=== PATIENT | male | born 1995 | race African-American/Black ===

== ENCOUNTER 2020-02-21 07:57 | Emergency (ER) | payer BC ==
[~2020-02-21] VITALS: Ht 165.1 cm; Wt 89.0 kg
[2020-02-21 08:04] VITALS: BP 135/71
--- NOTE | 2020-02-21 08:24 | PHYS DOC ---
Past History Past Medical History: No Pertinent History Past Surgical History: No Surgical History Alcohol Use: Rarely General Adult EDM: Chief Complaint: KNEE INJURY HPI: HPI: 24-year-old male with no significant past medical history presents to the ED with complaints of left medial knee pain that started when patient was kicking a pillow, knee in extension position. Patient states approximately 6 months ago he was seen at [facility] and had an x-ray concerning for ACL tear. Denies any blunt injury to the knee. No pain at the hip or left ankle. Patient states it hurts to bear weight. No recent fluoroquinolone use. Takes no routine medications. No other joint involvement. ROS: Denies associated fever, chills, cough, sore throat, dyspnea, chest pain or pressure, headache, joint swelling, rash, unilateral leg swelling, n/v/d/c, dysuria, hematuria, urethral discharge or hemoptysis. Physical Exam: PE: Constitutional: Well developed, well nourished, no acute distress, non-toxic appearance. [] HENT: Normocephalic, atraumatic, bilateral external ears normal, oropharynx moist, no oral exudates, nose normal. [] Eyes: PERRLA, EOMI, conjunctiva normal, no discharge. [] Neck: Normal range of motion, no tenderness, supple, no stridor. [] Cardiovascular:Heart rate regular rhythm, no murmur [] Lungs & Thorax: Bilateral breath sounds clear to auscultation [] Abdomen: Bowel sounds normal, soft, no tenderness, no masses, no pulsatile masses. [] Skin: Warm, dry, no erythema, no rash. [] Back: No tenderness, no CVA tenderness. [] Extremities: medial knee ttp, no joint swelling or increased warmth, no unilateral leg swelling, unremarkable lachmans.reverse lachmans, no cyanosis, no clubbing, no edema. [] normal flexion, painful extension Neurologic: Alert and oriented X 3, normal motor function, normal sensory function, no focal deficits noted. [] Psychologic: Affect normal, judgement normal, mood normal. [] Current Patient Data: Vital Signs: Vital Signs Date Time Temp Pulse Resp B/P (MAP) Pulse Ox O2 Delivery O2 Flow Rate FiO2 20 08:04 98.1 64 16 135/71 (92) 98 Room Air EKG: EKG: [] Radiology/Procedures: Radiology/Procedures: []IMAGING REPORT Signed PATIENT: ASHKAN TURK ACCOUNT: [id number] : 1995 LOCATION: ER AGE: 24 SEX: M EXAM STATUS: REG ER ORD. PHYSICIAN: YOUNG BANGURA DO REASON: left knee pain PROCEDURE: KNEE LEFT 3V KNEE LEFT 3V History: Left knee pain. Technique: 3 views left knee. Comparison: None. Findings: Normal alignment. No fracture. Soft tissues unremarkable. Small knee joint effusion. Impression: 1. No acute osseous abnormality. Electronically signed by: Cruz Obrien DO (02/21/2020 8:32 AM) [id number] DICTATED AND SIGNED BY: CRUZ OBRIEN DO DATE: 02/21/20831 Course & Med Decision Making: Course & Med Decision Making Impression: Concern for left medial knee sprain w/small effusion, differential is broad, likely ligamentous versus meniscal injury, life/limb-threatening conditions considered including septic joint/infection, osteomyelitis, compartment syndrome, neurovascular injury considered, low suspicion. Recommended conservative management, rice, and orthopedic surgery follow-up. Will provide knee brace, crutches, apap/nsaids otc prn. I spoken with the patient and her caregivers. I explained the patient's condition, diagnoses and treatment plan based on the information available to me at this time. I have answered the patient and her caregiver's questions and addressed any concerns. The patient and her caregivers have a good understanding of patient's diagnosis, condition and treatment plan as can be expected at this point. Vital signs have been stable. Patient's condition is stable and appropriate for discharge from the emergency department. Patient will pursue further outpatient evaluation with primary care physician or other designated or consulting physician as outlined in the discharge ins tructions. The patient and/or caregivers are agreeable to this plan of care and follow-up instructions have been explained in detail. The patient and/or caregivers have received these instructions in written form and have expressed an understanding of the discharge instructions. The patient and/or caregivers are aware that any significant change of condition or worsening of symptoms should prompt immediate return to this or the closest emergency department or call to 911. Quin Disclaimer: Dragon Disclaimer: This electronic medical record was generated, in whole or in part, using a voice recognition dictation system. Departure Departure: Impression: Primary Impression: Left knee sprain Disposition: HOME, SELF-CARE Condition: STABLE Referrals: PCP,NO (PCP) Patient Instructions: Combined Knee Ligament Sprain-SportsMed, Knee - Ligament Injury, Arthroscopy YOUNG BANGURA DO February 21, 2020 08:24
--- NOTE | 2020-02-21 08:35 | RAD ---
KNEE LEFT 3V History: Left knee pain. Technique: 3 views left knee. Comparison: None. Findings: Normal alignment. No fracture. Soft tissues unremarkable. Small knee joint effusion. Impression: 1. No acute osseous abnormality. Electronically signed by: Cruz Luna DO (02/21/2020 8:32 AM) [id number]
== END 2020-02-21 09:07 | disposition home or self-care (01) ==
LOC: ER 07:57
DX: S83.8X2A Sprain of other specified parts of left knee, initial encounter (principal); W22.8XXA Striking against or struck by other objects, initial encounter; Y93.89 Activity, other specified; Y92.89 Other specified places as the place of occurrence of the external cause; Y99.8 Other external cause status
CPT/HCPCS: 73562; 99283